=== PATIENT | female | born 1965 ===

== ENCOUNTER 2017-02-20 11:20 | Observation (INO) | payer BC ==
--- NOTE | 2017-02-05 17:18 | HP ---
ADMISSION HISTORY AND PHYSICAL: DATE OF ADMISSION: 02/20/17 ATTENDING SURGEON: Dr. Vu Moore.(dictated by REA Boykin) CHIEF COMPLAINT: Ventral hernia. HISTORY OF PRESENT ILLNESS: This is a 51-year-old female who has undergone multiple previous abdominal surgeries and who in recent months had noticed swelling in the right side of the abdomen that has gradually been getting larger. She has not really had any pain and there is no concern regarding incarceration or strangulation. She did have prior laparoscopic cholecystectomy in 2007 and the year after, an open surgery for ruptured appendix. She was seen by Dr. Moore initially at the [facility] on . Exam at that time was notable for some asymmetry with increased protuberance on the right side (the patient is obese). There was a vague palpable 8-cm mass on the right side consistent with hernia though it was difficult to feel the fascial defect based on her body habitus noted with the right paramedian scar consistent with previous appendectomy as well as laparoscopy scars. She was sent for CT scan of the abdomen and pelvis with contrast, which was performed on 01/31/17 and revealed a ventral hernia with colon without obstruction. There was also a small hiatal hernia and some sigmoid diverticulosis without diverticulitis. Dr. Moore estimated the defect to be about 6 cm though with much large amount of herniated bowel. Dr. Moore discussed these findings with the patient and the indications for surgery, the risks, benefits, and alternatives including the option of no surgery. After review of the expected perioperative course, the patient would like to proceed as scheduled with open repair ventral hernia with mesh and possible component separation. PAST MEDICAL HISTORY: Asthma (primarily cold air induced with no recent exacerbations in the past couple of years). She has experienced cellulitis in the right lower extremity once last year and once in December of this year for which she was hospitalized with resolution. She also has plantar fasciitis of the left foot. PAST SURGICAL HISTORY: Her previous surgeries include laparoscopic cholecystectomy, 2007; open appendectomy for ruptured appendicitis, 2008 (both of the surgeries done at [facility]); left thumb surgery; LEEP procedure for cervical dysplasia with normal followup Pap smears. CURRENT MEDICATIONS: None (she does have an albuterol inhaler for p.r.n. use) DRUG ALLERGIES: None. FAMILY HISTORY: Negative for anesthesia problem, bleeding, or clotting disorders. SOCIAL HISTORY: The patient is . She also has a granddaughter, who lives with them. 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 She denies use of tobacco. She drinks alcohol rarely and denies other drug use. REVIEW OF SYSTEMS: General: No recent constitutional symptoms or acute illnesses other than the cellulitis of right lower extremity as noted above. Cardiovascular: No chest pain, palpitations, history of hypertension, or heart murmur. Respiratory: Cold-induced bronchospasm, but without recent exacerbations. Otherwise, no shortness of breath or chronic cough. GI: No problems reported. The patient has not had colorectal cancer screening as she was unable to tolerate the oral bowel prep, but she will discuss other means of prep and/or screening with her PCP. : No problems reported. NUT SORTER: She is up -to-date within the past year for both breast and pelvic exams as well as reportedly normal mammogram and Pap smear. Musculoskeletal: No additions to above. Endocrine: No diabetes or thyroid dysfunction. PHYSICAL EXAMINATION GENERAL: A well-nourished, obese female in no acute distress. VITAL SIGNS: Height 66 inches, weight 230 pounds, BMI of 37. Temperature 98.2 , blood pressure 124/84, pulse 72, and respirations 18. HEENT: Pupils equal, round, and reactive. EOMs intact. No conjunctival pallor. Oropharynx: Teeth in good repair. No intraoral lesions. NECK: No lymphadenopathy, thyromegaly, or masses. LUNGS: Clear to auscultation. No rales or wheezes. BREASTS: Not examined. HEART: Regular rate and rhythm. No murmur noted. ABDOMEN: Well-healed right paramedian incision as well as laparoscopic incisions including relatively large incision just superior to the umbilicus. There is some vague asymmetry with increased protuberance on the right side of the abdomen. I am unable to detect specific hernia on exam because of the limitations based on body habitus. There is no tenderness to palpation and no other palpable masses or organomegaly. GENITALIA: Not done. RECTAL: Not done. BACK: No spinous process or CVA tenderness. EXTREMITIES: No edema. NEUROLOGIC: Grossly intact. SKIN: Warm and dry. No suspicious rashes or lesions. IMPRESSION: Ventral hernia. PLAN: Open repair ventral hernia with mesh; possible component separation. REA GOODWIN CC: [facility]ks[facility] * [id number]/[facility] #: [id number] [facility]
[~2017-02-20 11:20] MED LIST: Buffered Lidocaine 1% SYRIN* 3 ML/SYR SYRINGE INTRADERM ONE; NS 0.9% 1000 ML* 1,000 ML IV SCH
[2017-02-20] MEDS ORDERED: ceFAZolin 2 GM PREMIX(*) 2 GM/50 ML BAG IVPB ONE (11:39)
[2017-02-20] MEDS ORDERED: fentaNYL* 50 MCG/ML 2 ML VIAL (100 MCG VIAL) ONE ×4 (14:25→17:22)
[2017-02-20] MEDS ORDERED: Midazolam* 1 MG/ML 2 ML VIAL (2 MG) ONE (14:25)
[2017-02-20] MEDS ORDERED: Famotidine IV* 10 MG/ML 2 ML (20 mg) ONE (14:28)
[2017-02-20] MEDS ORDERED: Bupivacaine 0.25% EPI 200,000* 30 ML SDV ONE (14:43)
[2017-02-20] MEDS ORDERED: Lidocaine 2% PF * 5 ML VIAL ONE (15:08)
[2017-02-20] MEDS ORDERED: Dexamethasone IV* 4 MG/ML 1 ML (4 MG) ONE (15:08)
[2017-02-20] MEDS ORDERED: Rocuronium* 10 MG/ML VIAL ONE ×2 (15:08→15:47)
[2017-02-20] MEDS ORDERED: Ondansetron INJ* 2 MG/ML VIAL ONE (15:08)
[2017-02-20] MEDS ORDERED: Propofol* 10 MG/ML 20 ML BTL IV PUSH ONE (15:08)
[2017-02-20] MEDS ORDERED: DiMENhydriNATE IV* 50 MG/ML VIAL IV PUSH PRN (15:27)
[2017-02-20] MEDS ORDERED: PROCHLORPERAZINE INJ 5 MG/ML 2 ML VIAL IV PRN (15:27)
[2017-02-20] MEDS ORDERED: Acetaminophen TAB* 325 MG PO PRN (15:27)
[2017-02-20] MEDS ORDERED: HYDROcodone/ACETAMIN 5-325 MG* 1 TAB PO PRN (15:27)
[2017-02-20] MEDS ORDERED: EPHEDrine (Pressors)* 50 MG/ML VIAL ONE (16:05)
[2017-02-20] MEDS ORDERED: Ketorolac INJ* 30 MG/ML 1 ML VIAL ONE (16:32)
[2017-02-20] MEDS: Ketorolac INJ* 30 MG/ML 1 ML VIAL IV PUSH PRN ×2 (17:00→23:36)
--- NOTE | 2017-02-20 17:00 | PN ---
Progress Note - Progress Note Note: Brief Operative Note: Preop Dx: Ventral Hernia Postop Dx: same Procedure: Open repair ventral hernia w/ mesh utilizing component separation Anesthesia: GET Surgeon: Teresa Asst: REA Cullen; PARAM Trivedi EBL: <100 ml Fluids: 1000 ml RL Drains: 1 MERCEDES Findings: dictated
[2017-02-20] MEDS ORDERED: Albuterol HFA INHALER* 8 gm MDI INH PRN (17:09)
[2017-02-20] MEDS ORDERED: Magnesium Hydroxide LIQ* 30 ML UDC PO PRN (17:14)
[2017-02-20] MEDS ORDERED: HYDROmorphone* 1 MG/ML 1 ML SYR ONE (17:21)
[2017-02-20] MEDS: fentaNYL* 50 MCG/ML 2 ML VIAL (100 MCG VIAL) IV PRN ×4 (17:23→17:40)
[2017-02-20] MEDS: HYDROmorphone* 1 MG/ML 1 ML SYR IV PRN ×3 (17:26→17:40)
[2017-02-20] MEDS ORDERED: Morphine PCA ADULT* 5 MG/ML 30 ML ONE (17:45)
[2017-02-20] MEDS ORDERED: Morphine PCA ADULT* 5 MG/ML 30 ML PCA SCH (18:00)
[2017-02-20] MEDS: Docusate CAP* 100 MG PO SCH (21:11)
[2017-02-20] MEDS: Heparin VIAL(*) 5000 UNITS/ML VIAL (FIVE THOUSAND) SUBCUT SCH (21:13)
[2017-02-20] MEDS: Ondansetron INJ* 2 MG/ML VIAL IV PRN (23:59)
--- NOTE | 2017-02-21 01:55 | OP ---
DATE OF OPERATION: 02/20/17 - ROOM #[id number] DATE OF : 63 SURGEON: Vu Moore MD YARD CRANE OPERATOR: REA Boykin ANESTHESIOLOGIST: Dr. Russell. ANESTHESIA: General anesthetic, local infiltration. PRE-OP DIAGNOSIS: Ventral hernia. POST-OP DIAGNOSIS: Ventral hernia. OPERATIVE PROCEDURE: Open repair of ventral hernia with mesh and unilateral component separation. DESCRIPTION OF PROCEDURE: The patient was supine on the operative table. After adequate general anesthetic, compression stockings, Nicholas Hugger Warmer and intravenous antibiotics, the abdomen was prepped with antiseptic and draped in a sterile fashion. The previous supraumbilical transverse incision was reentered and dissection carried down until the hernia sac was identified. This extended well to the right almost to the iliac crest and once all the hernia sac was freed up from the attachments in its area of the subcutaneum, the neck was only about 3 cm across. The neck was opened up by 1 cm superiorly and inferiorly to allow reduction of the hernia contents. Once it was reduced, Lonny was used to lift up the musculature and the plain was freed up underneath the fascia all round to ensure adequate space for a patch. A 14 x 18 cm underlay patch was utilized with the adhesion barrier. It was sutured up full thickness to the abdominal wall on both lateral aspects. Component separation was decided to be utilized on the right side since the dissection of the sac had already opened up the space, so relaxing incision was created in the external oblique over approximately 18 cm. This created good advancement medially. The patch was attached using the spiral tacker from within the pocket up underneath. A total of 30 tacks were utilized. The fascia was then closed towards the midline with 0 Polysorb. The operative field was well irrigated with saline solution. Free fluid was suctioned out. MERCEDES drain was placed through a left lateral stab wound, sutured at the skin with 3-0 Prolene. The adipose was closed and tacked down to the fascia using 3-0 Vicryl. Skin was closed with surgical clips followed by sterile dressing. She tolerated the procedure well, was awakened and brought to Recovery in good condition. No complications. No specimens. Sponge, instruments counts correct. Drain is [place]. Estimated blood loss less than 50 mL. CC: Dr. Justine Wilks* [id number]/[facility] #: [id number] [facility]
[2017-02-21] MEDS ORDERED: Metoclopramide IV* 5 MG/ML 2 ML VIAL ONE (02:05)
[2017-02-21] MEDS: Heparin VIAL(*) 5000 UNITS/ML VIAL (FIVE THOUSAND) SUBCUT SCH ×3 (05:19→22:09)
[2017-02-21] MEDS: Ondansetron INJ* 2 MG/ML VIAL IV PRN (05:19)
[2017-02-21] MEDS: Acetaminophen TAB* 325 MG PO PRN ×2 (05:19→18:08)
[2017-02-21] MEDS: Ketorolac INJ* 30 MG/ML 1 ML VIAL IV PUSH PRN ×3 (08:02→22:07)
[2017-02-21] MEDS: Metoclopramide IV* 5 MG/ML 2 ML VIAL IV PRN ×2 (08:02→15:02)
[2017-02-21] MEDS: Docusate CAP* 100 MG PO SCH ×2 (08:03→21:01)
[2017-02-21] MEDS ORDERED: HYDROcodone/ACETAMIN 5-325 MG* 1 TAB PO PRN (08:30)
--- NOTE | 2017-02-21 14:21 | PN ---
Progress Note - Progress Note SOAP: Subjective: Feeling much better, less nausea. Tolerating clear liquids, passing flatus. Ambulatory. Objective: Awake and alert Afebrile Abdomen soft, non-distended, mild incisional tenderness. MERCEDES vac with gtts bloody output. I/O noted Assessment: A 51 y/o female, s/p VIH repair, improving. Plan: Plan to d/c to home tomorrow. I offered to send her home tonight if she's up to it, however, she still feels some pain and afraid to try regular diet due to nausea. Will advance diet and likely home in AM.
[2017-02-22] MEDS: Ketorolac INJ* 30 MG/ML 1 ML VIAL IV PUSH PRN ×2 (04:16→10:26)
[2017-02-22] MEDS: Heparin VIAL(*) 5000 UNITS/ML VIAL (FIVE THOUSAND) SUBCUT SCH (06:02)
[2017-02-22 07:45] VITALS: BP 143/80
[2017-02-22] MEDS: Docusate CAP* 100 MG PO SCH (08:48)
--- NOTE | 2017-02-22 10:54 | DCNOTE ---
S: Pain controlled. No N/V. Passing flatus. Took MOM today. O: Vital Signs Temp 98.1 F 02/22/17 07:31 Pulse 94 02/22/17 07:31 Resp 20 02/22/17 08:00 BP 143/80 02/22/17 07:31 Pulse Ox 94 02/22/17 08:00 Intake & Output 02/21/17 02/22/17 02/22/17 18:59 06:59 18:59 Intake Total 2169 1515 1403 Output Total 310 720 200 Balance 1138 452 6475 Intake: IV Fluids 1035 983 LR 1035 983 IVPB 1929 LR 1929 Oral 240 480 420 Output: MERCEDES #1 10 20 Urine 300 700 200 NAD abd: incis c/d/i, no erythema; soft with mod tenderness. MERCEDES SS output. A/P: POD#2 s/p open VIHR with mesh. Doing well. Home today. Diet as tolerated. Ibuprofen or [place] for pain (Rx sent; I-STOP Reference #: [id number]) Cont MERCEDES. RTO on Friday as planned.
== END 2017-02-22 11:50 | disposition home or self-care (01) ==
LOC: OR 11:20 → SSU 17:01
PROVIDERS: ADMIT Surgery; ATTEND Surgery
PROC: 0WUF0JZ Supplement Abdominal Wall with Synthetic Substitute, Open Approach (ICD-10-PCS; principal; 2017-02-20 13:45)
DX: K43.9 Ventral hernia without obstruction or gangrene (principal); J45.909 Unspecified asthma, uncomplicated; E66.9 Obesity, unspecified; Z68.37 Body mass index [BMI] 37.0-37.9, adult
CPT/HCPCS: A9270-GY; C1781; G0378; J0690; J1100; J1170; J1644; J1885; J2250; J2405; J2704; J3010